=== PATIENT | male | born 1940 | race Caucasian/White ===

== ENCOUNTER 2018-07-30 08:56 | Inpatient (IN) | payer OTHER ==
[~2018-07-30] VITALS: Ht 185.4 cm; Wt 106.6 kg
[~2018-07-30 08:56] MED LIST: AMLODIPINE BESY10 MG PO; ASPIR 8181 MG PO; MULTIPLE VITAM1 EAC2 PO; PRINIVIL10 MG PO; TUMS PO; VITAMIN D3400 UNIT PO
[2018-07-30 13:06] LABS: ABSOLUTE EOSINOPHILS 0.2 thou/uL (0.0-0.7); ABSOLUTE LYMPHOCYTES 1.2 thou/uL (0.8-5.3); ABSOLUTE MONOCYTES 0.6 thou/uL (0.0-1.2); ABSOLUTE NEUTROPHILS 4.8 thou/uL (1.6-8.1); BASOPHILS 0.7 %; EOSINOPHILS 2.3 %; HEMATOCRIT 43.7 % (42.0-52.0); HEMOGLOBIN 14.8 gm/dL (14.0-18.0); LYMPHOCYTES 17.9 %; MCH 31.9 pg (26.0-34.0); MCV 93.8 fL (80.0-100.0); MONOCYTES 8.6 %; NUCLEATED RBCS 0 /100WBC; PLATELET COUNT* 229 thou/uL (150-400); POLYS 70.5 %; RBC 4.65 mil/uL (4.50-6.00); RDW-CV 13.3 % (10.5-14.5); WBC 6.8 thou/uL (4.0-11.0)
[2018-07-30 13:28] LABS: CALCIUM 8.4 mg/dL (8.5-10.1); POTASSIUM 4.1 mmol/L (3.5-5.1)
[2018-07-30 13:31] LABS: APTT 31.3 Seconds (25.0-31.3); PROTIME 10.2 Seconds (9.20-11.50)
--- NOTE | 2018-07-30 14:38 | EKG ---
[place] [address] ELECTROCARDIOGRAM REPORT Name: JASON AYERS Room: [place] [address] ADM IN .R.#: [id number] Admission: 07/30/18 Attend Phys: Barney Rowland Discharge: Date of : 40 Report #: [id number] THIS REPORT FOR: //name// [facility] Test Date: 2018-07-30 Test Time: 12:53:52 Pat Name: JASON AYERS Department: Room: [place] [address] Gender: M Cardiac Cath Lab Radiology Technologist: : 1940 Requested By: Spencer Key Order Number: [id number] Holly MD: Emery Tom Measurements Intervals [place] Rate: 101 P: 44 VA: 168 QRS: -60 QRSD: 85 T: 41 QT: 329 QTc: 427 Interpretive Statements Sinus tachycardia Inferior infarct, old Anterior infarct, old possible No previous ECG available for comparison Electronically Signed On 07-30-2018 14:38:23 CDT by Emery Tom [email or web address] <ELECTRONICALLY SIGNED> By: Emery Tom MD, [facility] 07/30/18 1438 [id number] [id number] Emery Tom MD, FACC /EPI
[2018-07-30 14:48] VITALS: BP 186/89
[2018-07-30 18:43] VITALS: BP 104/44
--- NOTE | 2018-07-30 19:28 | NUR ---
PATIENT ADMITTED FROM OR DENIES DISTRESS.
[2018-07-31] VITALS (7 sets, daily range): BP systolic 95–134; BP diastolic 47–57
--- NOTE | 2018-07-31 05:58 | NUR ---
BLADDER SCANNED. 282MLS IN BLADDER, NO URGE TO PEE YET, WILL CONTINUE TO MONITOR
--- NOTE | 2018-07-31 06:13 | NUR ---
PATIENT PROGRESSING WELL TOWARDS GOALS. UNABLE TO VOID AT THIS TIME, BLADDER SCANNED WITH 282 MLS. ENCOURAGED TO DRINK MORE FLUIDS AND WILL BLADDER SCAN AGAIN AT 0700. DENIES ALL PAIN, SHORTNESS OF AIR AND NAUSEA/VOMITTING. DID NOT SLEEP MUCH TONIGHT EITHER. ART LINE D/C, ALL VITALS WNL. CALL LIGHT IN REACH, CARIDAC MONITOR IN PLACE. WILL CONTINUE TO MONITOR.
--- NOTE | 2018-07-31 10:00 | NUR ---
RN RESUMED CARE OF PT THIS AM. PT ALERT AND ORIENTED. VS STABLE. PT DUE TO VOID. DENIES ANY CONCERNS/QUESTIONS. HOPEFUL TO GO HOME TODAY. GOALS INCLUDE DC LATER TODAY.
--- NOTE | 2018-07-31 10:43 | NUR ---
ORTHO STATIC BP OBTAINED: LAYING DOWN: 144/54 SITTIN/57 STANDIN/47
--- NOTE | 2018-07-31 11:30 | NUR ---
MET WITH PT AND TO DISCUSS HOME SITUATION/DC PLANNING. PT LIVES WITH . USES NO EQUIPMENT AND IS INDEPENDENT AND ACTIVE. PLANS TO GO HOME LATER TODAY, DENIES NEEDS
[2018-07-31 11:37] LABS: HEMATOCRIT 35.7 % (42.0-52.0); MCH 31.6 pg (26.0-34.0); MCHC 33.6 g/dL (28.0-37.0); MCV 94.1 fL (80.0-100.0); MPV 8.2 fl. (7.2-11.1); RBC 3.8 mil/uL (4.50-6.00); RDW-CV 13.1 % (10.5-14.5); WBC 13.1 thou/uL (4.0-11.0)
[2018-07-31 11:52] LABS: ALBUMIN 3.2 g/dL (3.4-5.0); ALKALINE PHOSPHATASE 103 U/L (46-116); ANION GAP 7 mmol/L (7-16); BUN 30 mg/dL (7-18); CALCIUM 7.9 mg/dL (8.5-10.1); CHLORIDE 98 mmol/L (98-107); CO2 25 mmol/L (21-32); CREATININE 1.5 mg/dL (0.6-1.3); GLUCOSE 155 mg/dL (70-99); MAGNESIUM 1.9 mg/dL (1.8-2.4); POTASSIUM 3.9 mmol/L (3.5-5.1); SGOT 21 U/L (15-37); SGPT 14 U/L (30-65); SODIUM 130 mmol/L (136-145); TOTAL BILIRUBIN 0.8 mg/dL (<0.1-1.0); TOTAL PROTEIN 6.3 g/dL (6.4-8.2); TROPONIN-I LEVEL <0.06 ng/mL (<0.06)
--- NOTE | 2018-07-31 14:04 | NUR ---
ORTHOSTATICS BP OBTAINED: LAYING DOWN: 130/53 SITTING DOWN: 146/51 STANDIN/55
[2018-07-31] MEDS ORDERED: LIPITOR 20 MG T20 M1 PO (15:56)
[2018-07-31] MEDS ORDERED: NORCO 5-325 TA1 EACH PO (15:58)
[2018-07-31 15:59] LABS: URINE BILIRUBIN NEGATIVE (Negative); URINE BLOOD NEGATIVE (Negative); URINE CLARITY CLEAR; URINE COLOR YELLOW; URINE GLUCOSE-RANDOM NEGATIVE (Negative); URINE KETONES NEGATIVE (Negative); URINE LEUKOCYTES-REFLEX NEGATIVE (Negative); URINE NITRITE-REFLEX NEGATIVE (Negative); URINE PROTEIN NEGATIVE (Negative); URINE UROBILINOGEN 0.2 E.U./dl (0.2-1.0)
--- NOTE | 2018-07-31 16:50 | NUR ---
PATIENT DC WITH FAMILY AT BEDSIDE. ALL PRESCRIPTIONS, BELONGINGS, AND INSTRUCTIONS SENT WITH PATIENT. PATIENT AND FAMILY DENY ANY FURTHER QUESTIONS/CONCERNS AT THIS TIME.
--- NOTE | 2018-08-05 15:07 | PATH ---
[facility] [address] [place] [address] PATHOLOGY RPT PROCEDURE Name: ARI GANN Room: [address] IN M.R.#: [id number] Admission: 07/30/18 Date of : 40 Discharge: 07/31/18 Report #: [id number] Path Case #: [id number] [facility] Accession Number: [id number] . 01 Material submitted: . RIGHT CAROTID PLAQUE . 01 Clinical history: . Bilateral carotid stenosis . 02 Diagnosis: Right carotid plaque: - Fibrointimal atherosclerotic plaque with prominent calcification. (ROSEANNA:barrie; 08/03/2018) QMS/08/03/2018 . 02 Electronically signed: . Gen Jorge MD, Pathologist NPI- [id number] . 01 Gross description: . Received in formalin labeled "Ari Gann, right carotid plaque," are two segments of yellow-boucher, tubular rubbery tissue measuring 1.4 x 0.4 x 0.4 cm and 2.9 x 1.8 x 1.1 cm in greatest dimensions. Sectioning reveals a collection of granular, dark brown material in the specimen interior, as well as partially calcified cut surfaces. Placement Specialist tissue is submitted in cassette A1, following decalcification. (DAC; 08/02/2018) XDC/XDC . 02 Pathologist provided ICD-10: I65.21 . 02 CPT . 336372, [id number] Specimen Comment: A courtesy copy of this report has been sent to Specimen Comment: [phone], , . Specimen Comment: Report sent to , and Performed at: 01 [facility] [address], [place], [place] [id number] MD Calos Holloway MD Phone: [phone] Performed at: [address] [place] [address] [address], [place], [place] [id number] MD Gen Jorge MD Phone: [phone]
--- NOTE | 2018-08-13 16:02 | OP ---
[facility] [address] [place] [address] OPERATIVE REPORT Name: JASON AYERS Room: [address] IN M.R.#: [id number] Admission: 07/30/18 Attend Phys: Barney Rowland Discharge: 07/31/18 Date of : 40 Report #: [id number] THIS REPORT FOR: //name// CC: Case [facility] DATE OF SERVICE: 07/30/2018 PREOPERATIVE DIAGNOSIS: Asymptomatic right carotid stenosis greater than 70%. POSTOPERATIVE DIAGNOSIS: Asymptomatic right carotid stenosis greater than 70%. SURGEON: Spencer Key DO. SAND MILL OPERATOR CORE SAND: JEANNETTE Young. ANESTHESIA: General endotracheal anesthesia. PROCEDURE: 1. Right carotid endarterectomy a bovine pericardial patch angioplasty. 2. Intraoperative carotid duplex. ESTIMATED BLOOD LOSS: 100 mL. SPECIMEN: Plaque. COMPLICATIONS: None. CONDITION: Stable. DISPOSITION: ICU. INDICATIONS FOR THE PROCEDURE AND CONSENT: The patient is a 78-year-old male who presented with asymptomatic right carotid stenosis greater than 70%. Recommendation for right carotid endarterectomy was made. Risks and benefits were discussed including infection, bleeding, stroke, nerve injury, heart attack, . The patient wished to proceed, was consented and scheduled. PROCEDURE IN DETAIL: After timeout was performed, the patient was placed in supine position with sterile prep and drape of the anterior neck and chest wall. Semi-transverse incision was made anterior to the sternocleidomastoid and dissection carried down using Bovie electrocautery. The internal jugular vein was identified and the facial vein was ligated between 2-0 silk sutures. The common carotid artery was dissected sharply and a Rumel tourniquet placed. The internal and external carotid arteries were identified as was the hypoglossal [facility] [address] [place] [address] OPERATIVE REPORT Name: JASON AYERS Room: [address]#: [id number] Admission: 07/30/18 Attend Phys: Barney Rowland Discharge: 07/31/18 Date of : 40 Report #: [id number] nerve, which was preserved and protected. The internal carotid artery was controlled posteriorly with vessel loop and the external carotid artery controlled with a vessel loop. The thyroid artery was controlled with 2-0 silk tie. The patient was systemically heparinized with 6000 units of heparin, allowed to circulate for 3 minutes. The internal carotid artery was then clamped as was the common and external controlled with their perspective tourniquets. The arteries were an open with 11 blade and [place]lloa scissors longitudinally and #14 shunt advanced easily into the internal carotid artery and then into the common carotid artery and allowed to flow. The plaque was then removed and endarterectomized plaque elevator and tapered nicely distally. The endarterectomized portion was then meticulously cleaned with forceps. The external carotid artery was everted slightly to remove any debris from its origin. Once I was satisfied that there was no concern for debris, flaps or dissection, the wound was copiously irrigated and a bovine pericardial patch was selected and sutured in place with 6-0 Prolene in a circumferential fashion. Prior to complete closure, the shunt was removed and clamps reapplied. The area was irrigated and flushed to clear any occult debris that may be present. The patch was completely closed. Blood flow was then restored through the external carotid artery and ultimately up the internal carotid artery. The patch required a single 6-0 Prolene repair suture for hemostasis. The wound was then copiously irrigated. Protamine was given after intraoperative duplex confirmed that the patient had a patent internal, external and common carotid artery. Waveforms were appropriate and did not appear stenotic and no flaps were identified on B-mode imaging. The wound was then copiously irrigated and closed in layers using 2-0 Vicryl, 3-0 Vicryl and 4-0 Monocryl suture and Dermabond dressing was applied. The patient tolerated the procedure well. Lap, needle, and instrument counts correct. <ELECTRONICALLY SIGNED> By: Spencer Key DO 08/13/18 1602 1711 [id number] Key DO /nt
== END 2018-07-31 16:00 | disposition still patient (30) | DRG 38 ==
LOC: M.PRE 08:56 → M.ICU 12:27 → M.TBA 12:27 → M.PRE 14:04 → M.ICU 18:14
PROVIDERS: Family Medicine; ADMIT Surgery
DX: I65.21 Occlusion and stenosis of right carotid artery (principal); E87.1 Hypo-osmolality and hyponatremia; I25.10 Atherosclerotic heart disease of native coronary artery without angina pectoris; R33.9 Retention of urine, unspecified; E66.9 Obesity, unspecified; I12.9 Hypertensive chronic kidney disease with stage 1 through stage 4 chronic kidney disease, or unspecified chronic kidney disease; I95.9 Hypotension, unspecified; N18.2 Chronic kidney disease, stage 2 (mild); N40.0 Benign prostatic hyperplasia without lower urinary tract symptoms; E86.0 Dehydration; Z82.49 Family history of ischemic heart disease and other diseases of the circulatory system; Z68.31 Body mass index [BMI] 31.0-31.9, adult; Z79.82 Long term (current) use of aspirin; Z79.899 Other long term (current) drug therapy; Z23 Encounter for immunization; Z85.820 Personal history of malignant melanoma of skin; Z87.891 Personal history of nicotine dependence